=== PATIENT | female | born 1945 ===

== ENCOUNTER 2017-02-04 15:59 | Emergency (ER) | payer SELFPAY ==
[2017-02-04 16:05] VITALS: BP 143/79; PULSE 90; RESP 18; TEMP 99.3; O2SAT 97
[2017-02-04] MEDS ORDERED: Sodium Chloride 0.9% 1,000 ML IV STA (16:37)
[2017-02-04 17:05] LABS: BASO % 0.2 % (0.0-2.0); EOS % 0.4 % (0.0-4.0); HEMATOCRIT 39.7 % (34.0-47.0); LYMPH # 1.2 K/uL (1.0-4.3); LYMPH % 11.6 % (20.0-40.0); MEAN CELL VOLUME 88.6 fl (81.0-99.0); MEAN CORPUSCULAR HEMOGLOBIN 29.8 pg (27.0-31.0); MEAN CORPUSCULAR HGB CONC 33.6 g/dL (33.0-37.0); MEAN PLATELET VOLUME 9.3 fl (7.2-11.7); MONO # 0.5 K/uL (0.0-0.8); MONO % 5.3 % (0.0-10.0); NEUT # 8.5 K/uL (1.8-7.0); NEUT % 82.5 % (50.0-75.0); NRBC % 0.2 % (0.0-0.0); RED CELL DISTRIBUTION WIDTH 13.5 % (11.5-14.5); WHITE BLOOD COUNT 10.2 K/uL (4.8-10.8)
[2017-02-04 17:21] LABS: CHLORIDE 102 mmol/L (98-107)
[2017-02-04 17:22] LABS: POTASSIUM 3.9 MMOL/L (3.6-5.0); SODIUM 138 mmol/l (132-148)
[2017-02-04 17:24] LABS: ALB/GLOB RATIO 1.3 (1.0-2.1); ALKALINE PHOSPHATASE 72 U/L (38-126); AST/SGOT 23 U/L (14-36); BILIRUBIN,TOTAL 1.1 mg/dl (0.2-1.3); BLOOD UREA NITROGEN 17 mg/dl (7-17); CARBON DIOXIDE 25 mmol/L (22-30); GFR AFRICAN-AMERICAN > 60
[2017-02-04 17:25] LABS: ALT/SGPT 30 U/L (9-52); CALCIUM 9.5 mg/dL (8.4-10.2); GLUCOSE,RANDOM 96 mg/dL (65-105); LIPASE 77 U/L (23-300)
[2017-02-04 17:35] LABS: RBC URINE 1 /hpf (0-3); URINE BILIRUBIN NEGATIVE (NEGATIVE); URINE BLOOD NEGATIVE (NEGATIVE); URINE COLOR YELLOW (YELLOW); URINE GLUCOSE (UA) NEG (Normal); URINE KETONE NEGATIVE (NEGATIVE); URINE LEUKOCYTE ESTERASE NEG Leu/uL (Negative); URINE PROTEIN NEGATIVE (NEGATIVE); URINE UROBILINOGEN 0.2-1.0 mg/dL (0.2-1.0); WBC URINE 1 /hpf (0-5)
[2017-02-04 17:41] LABS: PARTIAL THROMBOPLASTIN TIME 28.1 Seconds (25.6-37.1)
[2017-02-04] MEDS ORDERED: Iohexol 300 100 ML IJ ONE (18:13)
--- NOTE | 2017-02-04 18:13 | ED PDOC ---
HPI: Headache Time Seen by Provider: 02/04/17 16:18 Chief Complaint (Nursing): Headache Chief Complaint (Provider): Headache History Per: Patient History/Exam Limitations: no limitations Onset/Duration Of Symptoms: Days (x3) Current Symptoms Are (Timing): Still Present Additional Complaint(s): Cassandra Spencer is a 71 year old female with previous medical history of diabetes and hypertension who presents to the emergency department with a complaint of frontal headache associated with abdominal pain, nausea and diarrhea ongoing for 3 days. Denied any vomiting, chest pain, or shortness of breath. PMD: none provided Past Medical History Reviewed: Historical Data, Nursing Documentation, Vital Signs Vital Signs: Last Vital Signs Temp 99.3 F 02/04/17 16:02 Pulse 90 02/04/17 16:02 Resp 18 02/04/17 16:02 BP 143/79 02/04/17 16:02 Pulse Ox 97 02/04/17 16:02 - Medical History PMH: Dementia, Diabetes, HTN - Surgical History Other surgeries: liposuction - Family History Family History: States: Unknown Family Hx - Social History Current smoker - smoking cessation education provided: No Alcohol: None Drugs: Denies - Home Medications Home Medications: Ambulatory Orders Medication Instructions Recorded traMADol [Ultram] 50 mg PO Q6H PRN #15 tab 07/01/16 Acetaminophen with Codeine 1 tab PO Q6H PRN #10 tab 02/04/17 [Tylenol with Codeine No. 3 300 mg-30 mg] Ciprofloxacin [Cipro] 500 mg PO BID #6 tab 02/04/17 Ondansetron ODT [Zofran ODT] 4 mg PO Q8H PRN #20 odt 02/04/17 - Allergies Allergies/Adverse Reactions: Allergies Allergy/AdvReac Type Severity Reaction Status Date / Time No Known Allergies Allergy Verified 02/04/17 16:02 Review of Systems ROS Statement: Except As Marked, All Systems Reviewed And Found Negative Cardiovascular: Negative for: Chest Pain Respiratory: Negative for: Shortness of Breath Gastrointestinal: Positive for: Nausea, Abdominal Pain, Diarrhea. Negative for : Vomiting Neurological: Positive for: Headache (frontal) Physical Exam - Reviewed Nursing Documentation Reviewed: Yes Vital Signs Reviewed: Yes - Physical Exam Appears: Positive for: Well, Non-toxic, No Acute Distress Head Exam: Positive for: ATRAUMATIC, NORMAL INSPECTION, NORMOCEPHALIC Skin: Positive for: Normal Color Cardiovascular/Chest: Positive for: Regular Rate, Rhythm Respiratory: Positive for: CNT, Normal Breath Sounds Gastrointestinal/Abdominal: Positive for: Soft, Tenderness (B/L upper quadrant) . Negative for: Guarding, Rebound Neurologic/Psych: Positive for: Alert, order selector II-XII, Oriented - Laboratory Results Result Diagrams: 02/04/17 17:00 02/04/17 17:00 - ECG Interpretation Of ECG: NSR @ 90, no ST-T changes. O2 Sat by Pulse Oximetry: 97 (RA) Pulse Ox Interpretation: Normal - CT Scan/US CT abd/pelvis Other Rad Studies (CT/US): Radiology Report Reviewed (Suspicious for diffuse small bowel wall thickening may represent enteritis. Colonic diverticulosis without evidence of diverticulitis.) Medical Decision Making Medical Decision Making: Initial Impression: Headache; Abdominal pain Initial Plan: * CT ABD/Pelvis with IV contrast * CT head without contrast * EKG * Urine dipstick * Morphine 2mg IV * NS 1,000ml IV per 100mls/hr * Zofran 4mg IV * Glucose, Blood, POC * Re-evaluation Time: 1851 CT head FINDINGS: HEMORRHAGE: No intracranial hemorrhage. BRAIN: No mass effect or edema. No atrophy or chronic microvascular ischemic changes. VENTRICLES: Unremarkable. No hydrocephalus. CALVARIUM: Unremarkable. PARANASAL SINUSES: Unremarkable as visualized. No significant inflammatory changes. MASTOID AIR CELLS: Unremarkable as visualized. No inflammatory changes. OTHER FINDINGS: None. IMPRESSION: Normal CT of the Head. Scribe Attestation: Documented by Lenora Kwong, acting as a scribe for Blank Fay MD. Provider Scribe Attestation: All medical record entries made by the Scribe were at my direction and personally dictated by me. I have reviewed the chart and agree that the record accurately reflects my personal performance of the history, physical exam, medical decision making, and the department course for this patient. I have also personally directed, reviewed, and agree with the discharge instructions and disposition. Disposition - Clinical Impression Clinical Impression: Enteritis, Headache - Disposition Referrals: [facility] [Outside] [facility] [Outside] Disposition Time: 19:00 Condition: STABLE Prescriptions: Acetaminophen with Codeine [Tylenol with Codeine No. 3 300 mg-30 mg] 1 tab PO Q6H PRN #10 tab PRN Reason: Pain, Severe (8-10) Ciprofloxacin [Cipro] 500 mg PO BID #6 tab Ondansetron ODT [Zofran ODT] 4 mg PO Q8H PRN #20 odt PRN Reason: Nausea/Vomiting Instructions: Acute Headache (ED), Enteritis (ED) Forms: NX[employer]ION (Dutch) Print Language: HAITIAN
[2017-02-04] MEDS ORDERED: Sodium Chloride 0.9% 50 ML IV ONE (18:14)
--- NOTE | 2017-02-04 18:53 | CT ---
PROCEDURE: CT HEAD WITHOUT CONTRAST. HISTORY: GARCIA COMPARISON: None available. TECHNIQUE: Axial computed tomography images were obtained through the head/brain without intravenous contrast. Radiation dose: Total exam DLP = 829.37 mGy-cm. This CT exam was performed using one or more of the following dose reduction techniques: Automated exposure control, adjustment of the mA and/or kV according to patient size, and/or use of iterative reconstruction technique. FINDINGS: HEMORRHAGE: No intracranial hemorrhage. BRAIN: No mass effect or edema. No atrophy or chronic microvascular ischemic changes. VENTRICLES: Unremarkable. No hydrocephalus. CALVARIUM: Unremarkable. PARANASAL SINUSES: Unremarkable as visualized. No significant inflammatory changes. MASTOID AIR CELLS: Unremarkable as visualized. No inflammatory changes. OTHER FINDINGS: None. IMPRESSION: Normal CT of the Head.
--- NOTE | 2017-02-04 19:01 | CT ---
PROCEDURE: CT Abdomen and Pelvis with contrast HISTORY: BUQ pain COMPARISON: None. TECHNIQUE: Contrast dose: 90 mL Omnipaque 300. Axial and reformatted coronal and sagittal CT images of the abdomen and pelvis were obtained after IV contrast administration. Radiation dose: Total exam DLP = mGy-cm. This CT exam was performed using one or more of the following dose reduction techniques: Automated exposure control, adjustment of the mA and/or kV according to patient size, and/or use of iterative reconstruction technique. FINDINGS: LOWER THORAX: No evidence of acute pathology. LIVER: Mild fatty liver infiltration noted. . No gross lesion or ductal dilatation. GALLBLADDER AND BILE DUCTS: Unremarkable. PANCREAS: Unremarkable. No gross lesion or ductal dilatation. SPLEEN: Unremarkable. ADRENALS: Mild thickening of the bilateral adrenal glands. No evidence of discrete mass lesion. KIDNEYS AND URETERS: Unremarkable. No hydronephrosis. No solid mass. VASCULATURE: Unremarkable. No aortic aneurysm. BOWEL: Suboptimal assessment of the GI system without oral contrast administration. There is a diffuse small bowel wall thickening at the mid and lower abdomen suspicious for enteritis. Descending and sigmoid colon diverticulosis are seen without evidence of diverticulitis. APPENDIX: No evidence of appendicitis. PERITONEUM: Unremarkable. No free fluid. No free air. LYMPH NODES: Unremarkable. No enlarged lymph nodes. BLADDER: Unremarkable. REPRODUCTIVE: The uterus is slightly enlarged for the patient's age. No evidence of discrete mass lesion. BONES: No acute fracture. OTHER FINDINGS: None. IMPRESSION: Suspicious for diffuse small bowel wall thickening may represent enteritis. Colonic diverticulosis without evidence of diverticulitis.
[2017-02-04] MEDS ORDERED: Ciprofloxacin 400mg/200ml D5W 400 MG/200 ML BAG IV STA (19:10)
[2017-02-04] MEDS ORDERED: Ciprofloxacin 400mg/200ml D5W 400 MG/200 ML BAG IVPB ONE (19:24)
--- NOTE | 2017-02-05 10:37 | CARD ---
APPROVED REPORT EKG Measurement Heart [id number] <Conclusion> Normal sinus rhythm Possible inferior infarct, age undetermined Abnormal ECG
== END 2017-02-04 20:56 | disposition home or self-care (01) ==
LOC: H.ER 15:59
DX: R51 Headache (principal); K52.9 Noninfective gastroenteritis and colitis, unspecified; E11.9 Type 2 diabetes mellitus without complications; F03.90 Unspecified dementia, unspecified severity, without behavioral disturbance, psychotic disturbance, mood disturbance, and anxiety; I10 Essential (primary) hypertension